=== PATIENT | female | born 1980 | race Caucasian/White ===

== ENCOUNTER 2017-03-02 17:01 | Emergency (ER) | payer SELFPAY ==
[~2017-03-02 17:01] MED LIST: REME30TA PO; TRAZ50TA4 PO
[2017-03-02 17:07] VITALS: BP 136/58; PULSE 80; RESP 20; TEMP 98.4; O2SAT 97
[2017-03-02] MEDS ORDERED: KETOROLAC TROMETHAMINE 60 MG/2 ML (IM) VIAL IM ONE (18:30)
[2017-03-02] MEDS ORDERED: CLOT1CRE6 TOPICAL (18:51)
[2017-03-02] MEDS ORDERED: CEPH-459 PO (18:51)
--- NOTE | 2017-03-02 18:55 | PD ---
HPI Chief Complaint: Skin Problem Time Seen by Provider: 18:20 Travel History International Travel<30 days: No Contact w/Intl Traveler<30days: No Traveled to known affect area: No History of Present Illness HPI 36-year-old female with chief complaint of painful open sores on her left foot. She reports the wounds originated as blisters which then opened and became painful. She reports she's had similar episodes over the last 2 years. He denies fever or chills. She reports the area has improved in the past with antifungals and antibiotics. Symptoms severity is mild. No aggravating or alleviating factors. PFSH Past Medical History Medical History: Denies Significant Hx Cancer: No Cardiovascular Problems: No Diabetes: No Diminished Hearing: No Endocrine: No Genitourinary: No Headaches: No Hepatitis: No Immune Disorder: No Musculoskeletal: No Neurologic: No Psychiatric: No Reproductive: No Respiratory: No Seizures: No Thyroid Disease: No Influenza Vaccination: No ?: Not Past Surgical History Abdominal Surgery: No Body Medical Devices: LEFT ANKLE SCREWS Cardiac Surgery: No Ear Surgery: No Endocrine Surgery: No Eye Surgery: No Genitourinary Surgery: No Gynecologic Surgery: No Oral Surgery: Yes (TONSILECTOMY) Pacemaker: No Thoracic Surgery: No Other Surgery: Yes (FACIAL RECONSTRUCTION) Social History Alcohol Use: No Tobacco Use: Yes (1 PPD) Substance Use: Yes (PT ADMIT TO OCCASIONALLY USING MARIJUANA) Allergies-Medications (Allergen,Severity, Reaction): Coded Allergies: No Known Allergies (Verified , 04/07/15) Reported Meds & Prescriptions Reported Meds & Active Scripts Active Keflex (Cephalexin) 250 Mg Cap 250 Mg PO Q6H Clotrimazole Anti-Fungal Topical (Clotrimazole) 1% Cream 1 Applic TOPICAL BID Review of Systems Except as stated in HPI: all other systems reviewed are Neg General / Constitutional: No: Fever Eyes: No: Visual changes HENT: No: Headaches Cardiovascular: No: Chest Pain or Discomfort Respiratory: No: Shortness of Breath Physical Exam Narrative GENERAL: Well-nourished, well-developed patient. SKIN: Focused skin assessment warm/dry. Multiple open blisters the left foot plantar aspect with erythematous base. No drainage. Tinea pedis in the webs of digit 2 through 4. No surrounding cellulitis, induration, abscess. HEAD: Normocephalic. EYES: No scleral icterus. No injection or drainage. NECK: Supple, trachea midline. No JVD or lymphadenopathy. CARDIOVASCULAR: Regular rate and rhythm without murmurs, gallops, or rubs. RESPIRATORY: Breath sounds equal bilaterally. No accessory muscle use. GASTROINTESTINAL: Abdomen soft, non-tender, nondistended. MUSCULOSKELETAL: No cyanosis, or edema. Data Data Last Documented VS Vital Signs Date Time Temp Pulse Resp B/P Pulse Ox O2 Delivery O2 Flow Rate FiO2 03/02/17 17:07 98.4 80 20 136/58 97 Orders Ketorolac Inj (Toradol Inj) (03/02/17 18:30) [facility] Medical Decision Making Medical Screen Exam Complete: Yes Emergency Medical Condition: Yes Differential Diagnosis Tinea pedis, wound infection, multiple blisters of foot Narrative Course 36-year-old female with chief complaint of painful open sores on her left foot. She reports the wounds originated as blisters which then opened and became painful. She also has what appears to be tinea pedis between digits 2 through 5. She denies fever or chills. She reports this problem has been intermittent over the last several years. Patient will be treated with antifungals antibiotics. She was instructed to follow-up with her primary care doctor. Return to emergency department if she develops new or worsening symptoms. Patient verbalizes understanding and agrees to plan. Diagnosis Primary Impression: Tinea pedis Qualified Code: B35.3 - Tinea pedis of left foot Additional Impression: Wound infection Referrals: Information Lead Departure Forms: Tests/Procedures, Work Release Enter return to work date: Mar 03, 2017 Additional Instructions: Take medications as prescribed. Follow-up with the [facility]. Scripts Cephalexin (Keflex)250 Mg Ftu349 Mg PO Q6H #28 CAP Prov:Chelsey Hay 03/02/17 Clotrimazole Topical (Clotrimazole Anti-Fungal Topical)1% Cream1 Applic TOPICAL BID #1 TUBE Ref 0 Prov:Chelsey Hay 03/02/17 Disposition: 01 DISCHARGE HOME Condition: Stable Chelsey Hay Mar 02, 2017 18:55
[2017-03-02 19:15] VITALS: BP 134/74
== END 2017-03-02 19:18 | disposition home or self-care (01) ==
LOC: PHED 17:01
DX: B35.3 Tinea pedis (principal); L08.9 Local infection of the skin and subcutaneous tissue, unspecified; F17.200 Nicotine dependence, unspecified, uncomplicated
CPT/HCPCS: 96372; 99284; J1885